=== PATIENT | female | born 1980 | race Caucasian/White ===

== ENCOUNTER 2025-02-02 20:20 | Emergency (ER) | payer SELFPAY ==
[~2025-02-02] VITALS: Ht 175.3 cm; Wt 60.0 kg
[2025-02-02 20:31] VITALS: O2SAT 99
[2025-02-02] MEDS: DEXAMETHASONE 10 MG/ML VIAL IV ONE (22:00)
[2025-02-02] MEDS: LIDOCAINE 5% PATCH TOP ONE (22:00)
[2025-02-02] MEDS: KETOROLAC 15MG/ML VIAL IV ONE (22:00)
[2025-02-02] MEDS: SODIUM CHLORIDE 0.9% 1,000 ML IV ONE (22:00)
[2025-02-02 22:36] LABS: BASOPHILS % 0.9 % (0.0-2.0); EOSINOPHILS % 3.6 % (0.0-5.0); HEMATOCRIT. 39.5 % (36.0-48.0); HEMOGLOBIN. 13.1 g/dL (12.0-16.0); LYMPHOCYTES % 28.8 % (20.0-50.0); MEAN PLATELET VOLUME 7.7 fl (7.4-10.4); MONOCYTES % 7.4 % (2.0-8.0); NEUTROPHILS % 59.3 % (40.0-76.0); PLATELET 240 x1000/uL (130-400); RED BLOOD CELL COUNT 4.02 mill/uL (4.2-5.4); RED CELL DISTRIBUTION WIDTH 13.6 % (11.6-14.6)
[2025-02-02 22:38] LABS: CLARITY URINE CLEAR (CLEAR); COLOR URINE YELLOW (YELLOW); GLUCOSE URINE NEGATIVE (NEGATIVE); KETONES URINE NEGATIVE (NEGATIVE); LEUKOCYTE ESTERASE URINE 1+ (NEGATIVE); NITRITE URINE POSITIVE (NEGATIVE); OCCULT BLOOD URINE NEGATIVE (NEGATIVE); PH URINE 6.0 (4.5-8.0); PROTEIN URINE NEGATIVE (NEGATIVE); SPECIFIC GRAVITY URINE 1.021 (1.005-1.030); UROBILINOGEN URINE 0.2 E.U./dL (0.2-1.0)
[2025-02-02 22:47] LABS: CREATININE 0.8 mg/dL (0.6-1.0)
[2025-02-02 22:48] LABS: INR 0.9; PROTEIN TOTAL 7.0 g/dL (6.0-8.3); UREA NITROGEN BLOOD 8 mg/dL (9-23)
[2025-02-02 22:49] LABS: ASPARTATE AMINOTRANSFERASE 16 IU/L (<34)
[2025-02-02 22:49] LABS: BACTERIA URINE 2+; RBC URINE NONE SEEN /hpf (0-2); SQUAMOUS EPITHELIAL CELL URINE FEW /lpf (RARE/1+)
[2025-02-02 22:50] LABS: BILIRUBIN DIRECT < 0.1 mg/dL (<=3.0); BILIRUBIN TOTAL 0.3 mg/dL (0.1-1.0)
[2025-02-02 22:52] LABS: HCG SCREEN NEGATIVE
[2025-02-02 23:46] LABS: INFLUENZA TYPE A Presumptive Negative (Pres. Neg.)
[2025-02-02 23:47] LABS: INFLUENZA TYPE B Presumptive Negative (Pres. Neg.)
[2025-02-02] MEDS ORDERED: CEPH500C2 MT (23:58)
[2025-02-02] MEDS ORDERED: IBUP-1455 MT (23:58)
[2025-02-02] MEDS ORDERED: METO-293 MT (23:58)
[2025-02-02 23:59] VITALS: BP 121/70; PULSE 85; RESP 16; TEMP 36.9; O2SAT 98
[2025-02-03] MEDS: CEPHALEXIN 250MG CAPSULE PO ONE
== END 2025-02-03 00:08 | disposition home or self-care (01) ==
LOC: EEVIPCON 20:20 → ER 20:20
DX: B34.9 Viral infection, unspecified (principal); N39.0 Urinary tract infection, site not specified; Z79.899 Other long term (current) drug therapy; Z20.822 Contact with and (suspected) exposure to COVID-19; Z98.890 Other specified postprocedural states
CPT/HCPCS: 99285; 96374; 70450; 96361; 96375; 87426; 80076; 80048; 81003; 81025; 84703; 85025; 85610; 85730; 87804 ×2; 36415; J1885; J1100; J7030